=== PATIENT | female | born 1985 | race American Indian/Alaskan Native ===

== ENCOUNTER 2017-07-21 22:40 | Outpatient (CLI) | payer MEDICAID | END 2017-07-22 00:55 | disposition home or self-care (01) | LOC: TRG 22:40 | PROVIDERS: ATTEND Obstetrics & Gynecology | DX: O62.9 Abnormality of forces of labor, unspecified (principal); Z3A.38 38 weeks gestation of pregnancy ==

== ENCOUNTER 2020-05-11 11:09 | Inpatient (IN) | payer MEDICAID ==
[2020-05-11] MEDS ORDERED: ePHEDrine SULFATE 50 MG/1 ML INJ IV PRN (11:55)
[2020-05-11] MEDS ORDERED: LIDOCAINE (2%) 20 MG/1 ML VIAL 20 ML MDV INFILTRATI ONE (11:55)
[2020-05-11] MEDS ORDERED: BUTORPHANOL 2 MG/1 ML INJ IV PRN ×2 (11:55)
[2020-05-11] MEDS ORDERED: TERBUTALINE 1 MG/1 ML INJ SUB-Q PRN (11:55)
[2020-05-11] MEDS ORDERED: TERBUTALINE 1 MG/1 ML INJ IVP PRN (11:55)
[2020-05-11] MEDS ORDERED: fentaNYL 100 MCG/2 ML INJ IV PRN (11:55)
[2020-05-11] MEDS ORDERED: ONDANSETRON 4 MG/2 ML INJ IV PRN ×2 (11:55→19:36)
[2020-05-11] MEDS ORDERED: NalbUPHINE 10 MG/1 ML INJ IV PRN (11:55)
[2020-05-11] MEDS ORDERED: LACTATED RINGERS 1,000 ML IV SCH (12:00)
[2020-05-11] MEDS ORDERED: OXYTOCIN 20 UNIT/1000ML DRIP 20 UNITS/1,000 ML BAG IV SCH (12:00)
[2020-05-11] MEDS ORDERED: OXYTOCIN DRIP 30 UNITS/500 ML BAG IV SCH ×2 (12:00)
[2020-05-11] MEDS ORDERED: ceFAZolin/NS 1 GM/50 ML 1 GM/50 ML BAG IV ONE (13:07)
[2020-05-11 13:15] LABS: Hematocrit 28.1 % (30.3-42.9); Hemoglobin 9.6 gm/dl (10.1-14.3); Mean Corpuscular HGB Conc 34 % (30-34); Mean Corpuscular Volume 100 fl (79-97); Platelet Count 177 K/mm3 (140-440); Red Blood Count 2.82 M/mm3 (3.65-5.03); Red Cell Distribution Width 14.9 % (13.2-15.2)
[2020-05-11] MEDS ORDERED: DOCUSATE SODIUM 100 MG CAP PO PRN (13:29)
[2020-05-11] MEDS ORDERED: ACETAMINOPHEN 325 MG TAB PO PRN ×2 (13:29→19:36)
[2020-05-11] MEDS ORDERED: BETAMET ACET/BETAMET NA PH 6 MG/ML INJ 5 ML MDV IM SCH (14:00)
[2020-05-11] MEDS ORDERED: AMPICILLIN/NS 2 GM/100 ML 2 GM/100 ML BAG IV SCH (14:00)
[2020-05-11] MEDS ORDERED: MAGNESIUM SULFATE 4 GM/100 ML BAG IV ONE (14:27)
[2020-05-11] MEDS ORDERED: MAGNESIUM SULFATE 40GM/1000ML 40 GM/1,000 ML BAG IV SCH (15:00)
[2020-05-11] MEDS ORDERED: ERYTHROMYCIN LACTOBIONATE 250 MG in SODIUM CHLORIDE 0.9% 100 ML IV SCH (15:00)
--- NOTE | 2020-05-11 18:14 | History and Physical Report ---
History of Present Illness Date of examination: 05/11/20 Date of admission: 05/11/20 11:56 Chief complaint: leakage of fluid History of present illness: 34y/o @ 33+3 weeks presents to L&D with premature rupture of membranes. The patient was a late presentation to care @ 20 weeks. Her last visit was @ 29 weeks ega. course complicated by grand multiparity, exposure to multiple STDs, anemia. Her GBS status is unknown. 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, gonorrhea, herpes, trichomonas Social history: single - Obstetrical History Expected Date of Delivery: 06/26/20 Actual Gestation: 33 Week(s) 3 Day(s) : 10 Para: 7 Hx # Term Pregnancies: 7 Number of Pregnancies: 0 Spontaneous Abortions: 2 Induced : 0 Number of Living Children: 7 Medications and Allergies Allergies Allergy/AdvReac Type Severity Reaction Status Date / Time No Known Allergies Allergy Verified 07/22/17 09:34 Home Medications Medication Instructions Recorded Confirmed Last Taken Type Ferrous Fumarate/Docusate(Nf) 1 each PO DAILY #30 tablet.er 07/22/17 Unknown Rx [Ganesh-Sequels 106/50 mg tab] Ibuprofen [Motrin] 600 mg PO Q8H PRN #40 tablet 07/22/17 Unknown Rx Vit-Fe Fumar-FA [ 1 tab PO QDAY 07/22/17 07/22/17 1 Day Ago History Vitamin] ~07/21/17 Active Meds: Active Medications Acetaminophen (Tylenol) 650 mg PO Q4H PRN PRN Reason: Pain MILD(1-3)/Fever >100.5/NICHOLS Amoxicillin (Trimox) 250 mg PO Q8HR EBONY; Protocol Stop: 05/18/20 13:59 Betamethasone Acet/Betameth SodPhos (Celestone Soluspan) 12 mg IM Q24HR EBONY Last Admin: 05/11/20 13:32 Dose: 12 mg Documented by: Butorphanol Tartrate (Stadol) 1 mg IV Q2H PRN PRN Reason: Pain, Moderate(4-6) LABOR PAIN Butorphanol Tartrate (Stadol) 2 mg IV Q2H PRN PRN Reason: Pain , Severe (7-10) Last Admin: 05/11/20 16:51 Dose: 2 mg Documented by: Docusate Sodium (Colace) 100 mg PO Q12H PRN PRN Reason: Constipation Ephedrine Sulfate (Ephedrine Sulfate) 10 mg IV Q2M PRN PRN Reason: Hypotension Erythromycin (Erythromycin Base) 250 mg PO Q8HR EBONY; Protocol Stop: 05/18/20 13:59 Fentanyl (Sublimaze) 100 mcg IV Q2H PRN PRN Reason: Pain,Severe (7-10) LABOR PAIN Oxytocin/Sodium Chloride (Pitocin/Ns 20 Unit/1000ml Drip) 20 units in 1,000 mls @ 125 mls/hr IV DIRECT EBONY Oxytocin/Sodium Chloride (Pitocin/Ns 30 Unit/500ml) 30 units in 500 mls @ 1 mls/hr IV TITR EBONY; Protocol Lactated Ringer's (Lactated Ringers) 1,000 mls @ 125 mls/hr IV DIRECT EBONY Last Admin: 05/11/20 13:00 Dose: 125 mls/hr Documented by: Ampicillin Sodium (Ampicillin/Ns 2 Gm/100 Ml) 2 gm in 100 mls @ 100 mls/hr IV Q6HR EBONY; Protocol Stop: 05/13/20 06:59 Last Admin: 05/11/20 14:20 Dose: 100 mls/hr Documented by: Erythromycin Lactobionate 250 (mg/ Sodium Chloride) 100 mls @ 100 mls/hr IV Q6HR EBONY; Protocol Stop: 05/13/20 12:59 Last Admin: 05/11/20 15:33 Dose: 100 mls/hr Documented by: Magnesium Sulfate (Magnesium Sulfate 4gm/100ml) 4 gm in 100 mls @ 25 mls/hr IV ONCE ONE Stop: 05/11/20 18:26 Last Admin: 05/11/20 14:55 Dose: 25 mls/hr Documented by: Magnesium Sulfate (Magnesium Sulfate 40gm/1000ml) 40 gm in 1,000 mls @ 50 mls/hr IV DIRECT EBONY Last Admin: 05/11/20 15:40 Dose: 2 gm/hr, 50 mls/hr Documented by: Mineral Oil (Mineral Oil) 30 ml PO QHS PRN PRN Reason: Constipation Multivitamins/Iron/Calcium ( Vitamin) 1 each PO QDAY EBONY Nalbuphine HCl (Nalbuphine) 10 mg IV Q2H PRN PRN Reason: Pain, Moderate (4-6) Ondansetron HCl (Zofran) 4 mg IV Q8H PRN PRN Reason: Nausea And Vomiting Terbutaline Sulfate (Brethine) 0.25 mg SUB-Q ONCE PRN PRN Reason: Hyperstimulation/Hypertonicity Stop: 05/11/20 23:00 Terbutaline Sulfate (Brethine) 0.25 mg IVP ONCE PRN PRN Reason: Hyperstimulation/Hypertonicity Stop: 05/11/20 23:59 Review of Systems All systems: negative Genitourinary: leakage of fluid, contractions - Vital Signs Vital signs: Vital Signs Temp Pulse Resp BP Pulse Ox 98.1 F 102 H 18 136/84 98 05/11/20 11:39 05/11/20 11:39 05/11/20 11:39 05/11/20 11:39 05/11/20 11:39 Temp Pulse Resp BP Pulse Ox 98.1 F 98 H 18 154/76 100 05/11/20 13:53 05/11/20 18:06 05/11/20 16:51 05/11/20 17:59 05/11/20 18:06 - Physical Exam Breasts: Positive: deferred Cardiovascular: Regular rate Lungs: Positive: Clear to auscultation Abdomen: Positive: normal appearance - Obstetrical Cervical Dilatation: 3 Results Result Diagrams: 05/11/20 12:40 Abnormal lab results 05/11/20 Range/Units 12:40 RBC 2.82 L (3.65-5.03) M/mm3 Hgb 9.6 L (10.1-14.3) gm/dl Hct 28.1 L (30.3-42.9) % MCV 100 H (79-97) fl MCH 34 H (28-32) pg All other labs normal. Assessment and Plan - Patient Problems (1) labor in second trimester Current Visit: Yes Status: Acute Plan to address problem: admit to L&D to administer antibiotics, steroids, and magnesium (2) Insufficient care Current Visit: Yes Status: Acute (3) Grand multiparity Current Visit: Yes Status: Acute (4) premature rupture of membranes Current Visit: Yes Status: Acute
[2020-05-11] MEDS ORDERED: PROMETHAZINE 25 MG TAB PO PRN (19:36)
[2020-05-11] MEDS ORDERED: PROMETHAZINE 25 MG RECT SUPP PR PRN (19:36)
[2020-05-11] MEDS ORDERED: WITCH HAZEL/ GLYCERIN PAD TP PRN (19:36)
[2020-05-11] MEDS ORDERED: MAGNESIUM HYDROXIDE (MOM) ORAL LIQD UDC PO PRN (19:36)
[2020-05-11] MEDS ORDERED: LANOLIN/ZINC/DIMETHICONE (LANSINOH) 7 GM TP PRN (19:36)
[2020-05-11] MEDS ORDERED: diphenhydrAMINE 25 MG CAP PO PRN (19:36)
--- NOTE | 2020-05-11 19:36 | Procedure Note ---
OB Delivery Note - Delivery Date of Delivery: 05/11/20 Surgeon: GIANNA CHILEL Estimated blood loss: 300cc - Vaginal Delivery presentation: vertex Delivery position: OA Intrapartum events: labor-<37 weeks Delivery monitor: external FHT, external uterine Route of delivery: Delivery placenta: spontaneous Delivery cord: nuchal cord, 3 umbilical vessels Delivery laceration: none Anesthesia: none Delivery comments: The patient had rapid progression from 4 cm to 10 cm with a precipitous delivery of a liveborn female with Apgars of 8 and 9 weight 5 pounds 2 ounces. The delivery was attended by the nursing staff. Pediatrics were in attendance. Cord was clamped and cut x2 and the infant was passed to the warmer. The placenta delivered spontaneously intact with a three-vessel cord. It was noted that a nuchal cord x1 was manually reduced. No lacerations were noted. Estimated blood loss of 300 mL - A at 1 minute: 8 at 5 minutes: 9 Infant Gender: Female (Weight 5 pounds 2 ounces)
--- NOTE | 2020-05-11 19:41 | Ultrasound Report ---
ULTRASOUND OBSTETRIC INDICATION / CLINICAL INFORMATION: UNSURE OF DATES/FOR DATES. Clinical Gestational Age (GA): Unknown TECHNIQUE: Transabdominal. COMPARISON: None available. FINDINGS: There is a single intrauterine . Heart Rate: 143 beats per minute. Position: cephalic. Cervical length 3 cm. The exam was curtailed because the patient was perceived to have entered labor. Anatomic images acqui red demonstrate a four-chamber cardiac structure. IMPRESSION: 1. Single, living intrauterine in cephalic presentation with heart rate 143 bpm 2. No significant sonographic abnormality on a limited evaluation. Signer Name: Kevin Singh MD Signed: 05/11/2020 7:36 PM Workstation Name: [id number]
[2020-05-11] MEDS ORDERED: MINERAL OIL 30 ML ORAL LIQD PO PRN (22:00)
[2020-05-11] MEDS ORDERED: ceFAZolin/NS 1 GM/50 ML 1 GM/50 ML BAG IV SCH (22:00)
[2020-05-12] MEDS: IBUPROFEN 600 MG TAB PO SCH ×4 (06:11→17:34)
--- NOTE | 2020-05-12 07:54 | Progress Note ---
Assessment and Plan A: PPD#1 s/p at term Gestational HTN P: PIH panel ordered Monitor BPs Anticipate discharge tomorrow Subjective - Subjective Date of service: 05/12/20 Principal diagnosis: s/p at term Interval history: Pt without complaints. Denies PIH symptoms. Patient reports: appetite normal, voiding normally, pain well controlled, ambulating normally [place]: doing well Objective - Vital Signs Latest vital signs: Vital Signs Temp Pulse Resp BP BP Pulse Ox 05/12/20 06:11 18 05/12/20 00:33 98.2 F 83 18 134/83 98 05/12/20 00:00 16 05/11/20 21:40 98.7 F 88 18 135/75 97 05/11/20 21:02 91 H 98 05/11/20 20:59 88 152/85 05/11/20 20:57 88 99 05/11/20 20:56 93 H 92 05/11/20 20:52 92 H 98 05/11/20 20:47 92 H 98 05/11/20 20:44 88 148/85 05/11/20 20:42 102 H 98 05/11/20 20:37 101 H 98 05/11/20 20:32 94 H 93 05/11/20 20:29 90 145/80 05/11/20 20:27 97 H 98 05/11/20 20:24 101 H 92 05/11/20 20:22 102 H 96 05/11/20 20:17 99 H 99 05/11/20 20:14 89 128/72 05/11/20 20:12 95 H 98 05/11/20 20:07 103 H 98 05/11/20 20:02 101 H 100 05/11/20 20:00 105 H 94 05/11/20 19:59 98 H 147/95 05/11/20 19:57 97 H 100 05/11/20 19:52 95 H 98 05/11/20 19:50 97.6 F 94 H 18 148/94 99 05/11/20 19:48 90 148/94 05/11/20 19:47 98 H 100 05/11/20 19:44 96 H 166/93 05/11/20 19:42 100 H 99 05/11/20 19:37 110 H 97 05/11/20 19:28 102 H 100 06/22/20 19:25 101 H 149/87 06 19:23 106 H 100 0620 18:56 118 H 90 06 18:51 114 H 99 05/11/20 18:46 105 H 99 06 18:41 106 H 98 05/11/20 18:36 104 H 98 05/11/20 18:31 107 H 99 05/11/20 18:30 104 H 135/70 05/11/20 18:26 113 H 98 06 18:21 108 H 96 05/11/20 18:16 103 H 96 06 18:11 104 H 96 06 18:06 98 H 100 05/11/20 18:01 106 H 100 05/11/20 17:59 98 H 154/76 05/11/20 17:56 102 H 97 05/11/20 17:51 95 H 98 05/11/20 17:46 104 H 100 05/11/20 17:41 102 H 95 05/11/20 17:37 99 H 91 05/11/20 17:36 96 H 98 05/11/20 17:31 108 H 96 05/11/20 17:26 112 H 97 05/11/20 17:21 104 H 97 05/11/20 17:16 112 H 94 05/11/20 17:13 112 H 94 05/11/20 17:11 108 H 96 05/11/20 17:08 111 H 94 05/11/20 17:06 102 H 98 05/11/20 17:01 94 H 97 05/11/20 16:59 91 H 114/58 05/11/20 16:56 100 H 96 05/11/20 16:51 103 H 18 93 05/11/20 16:46 98 H 99 05/11/20 16:41 98 H 98 05/11/20 16:38 81 L 06 16:36 98 H 100 05/11/20 16:31 108 H 99 06 16:29 103 H 136/90 05/11/20 16:26 102 H 99 05/11/20 16:21 97 H 99 05/11/20 16:16 100 H 98 05/11/20 16:11 98 H 99 05/11/20 16:06 102 H 99 06/22/20 16:01 94 H 99 05/11/20 15:59 96 H 136/89 05/11/20 15:56 95 H 98 05/11/20 15:51 95 H 98 05/11/20 15:46 96 H 98 05/11/20 15:41 93 H 97 05/11/20 15:36 90 97 05/11/20 15:31 94 H 97 05/11/20 15:29 114 H 127/95 05/11/20 15:26 94 H 96 05/11/20 15:21 92 H 99 05/11/20 15:16 95 H 99 05/11/20 15:11 101 H 99 05/11/20 15:06 95 H 99 05/11/20 15:01 100 H 99 05/11/20 14:58 91 H 135/88 05/11/20 14:56 102 H 99 05/11/20 14:51 96 H 99 05/11/20 14:46 100 H 100 05/11/20 14:45 89 05/11/20 14:41 92 H 100 05/11/20 14:36 96 H 100 05/11/20 14:31 94 H 100 05/11/20 14:30 93 H 138/87 05/11/20 14:26 91 H 100 05/11/20 14:21 95 H 99 05/11/20 14:16 95 H 100 05/11/20 14:11 102 H 99 05/11/20 14:06 98 H 99 05/11/20 14:01 93 H 100 05/11/20 13:58 100 H 136/92 05/11/20 13:56 104 H 99 05/11/20 13:53 98.1 F 104 H 18 145/90 99 05/11/20 13:51 102 H 99 05/11/20 13:46 89 99 05/11/20 13:41 99 H 99 05/11/20 13:36 105 H 99 05/11/20 13:31 104 H 99 05/11/20 13:26 97 H 99 05/11/20 13:21 99 H 100 05/11/20 13:16 107 H 100 05/11/20 13:11 96 H 100 05/11/20 13:09 90 145/90 05/11/20 13:06 101 H 99 05/11/20 13:01 99 H 99 05/11/20 12:56 92 H 99 05/11/20 12:51 91 H 99 05/11/20 12:46 92 H 98 05/11/20 12:41 95 H 99 05/11/20 12:40 86 145/83 05/11/20 12:36 98 H 99 05/11/20 12:31 102 H 99 05/11/20 12:26 92 H 99 05/11/20 12:21 100 H 99 05/11/20 12:16 101 H 99 05/11/20 12:11 100 H 136/79 99 05/11/20 12:06 105 H 100 05/11/20 12:01 100 H 99 05/11/20 11:56 93 H 99 05/11/20 11:51 105 H 100 05/11/20 11:46 106 H 99 05/11/20 11:41 92 05/11/20 11:40 105 H 136/84 05/11/20 11:39 98.1 F 102 H 18 146/90 136/84 98 Intake and Output 05/11/20 05/12/20 05/12/20 22:59 06:59 14:59 Output Total 390 300 Balance -390 -300 Output: Urine 390 300 Indwelling Catheter 390 Void 300 Other: Total, Output Amount 40 300 # Voids Void 1 - Exam Breasts: Present: deferred Uterus: Present: fundal height at umbilicus Extremities: Present: edema (trace) - Labs Labs: Abnormal lab results 05/11/20 05/11/20 Range/Units 12:40 17:23 RBC 2.82 L (3.65-5.03) M/mm3 Hgb 9.6 L (10.1-14.3) gm/dl Hct 28.1 L (30.3-42.9) % MCV 100 H (79-97) fl MCH 34 H (28-32) pg Magnesium 2.90 H (1.7-2.3) mg/dL
[2020-05-12 08:49] LABS: Hemoglobin 9.6 gm/dl (10.1-14.3); Mean Corpuscular HGB Conc 33 % (30-34); Mean Corpuscular Volume 101 fl (79-97); Platelet Count 173 K/mm3 (140-440); Red Blood Count 2.88 M/mm3 (3.65-5.03)
[2020-05-12 09:16] LABS: Alanine Aminotransferase 20 units/L (7-56); Uric Acid 5.1 mg/dL (3.5-7.6)
[2020-05-12] MEDS ORDERED: PRENATAL VIT27-FE FUMARATE-FOLIC ACID VIT TAB PO SCH (10:00)
[2020-05-12 15:06] LABS: Bacteria,Urine 1+ /HPF (Negative); Bilirubin,Urine NEG (Negative); Blood,Urine LG (Negative); Color,Urine Yellow (Yellow); Mucus,Urine FEW /HPF; Urobilinogen,Urine < 2.0 mg/dL (<2.0)
[2020-05-12] MEDS: HYDROcodone/ACETAMINOPHEN 5-325 MG TAB PO PRN (22:12)
[2020-05-13] MEDS: IBUPROFEN 600 MG TAB PO SCH ×3 (02:30→17:47)
--- NOTE | 2020-05-13 08:15 | Progress Note ---
Assessment and Plan A: PPD2 s/p Gestational hypertension without symptoms of preeclampsia Chronic anemia due to Mild range BP Afebrile P: Ferrous sulfate supplementation Discharge to home today with strict preeclampsia precautions and 1 week BP check Subjective - Subjective Date of service: 05/13/20 Principal diagnosis: s/p at term, gestational HTN Interval history: PPD2 s/p and gestational hypertension Patient reports: appetite normal, voiding normally, pain well controlled, ambulating normally, other (denies NICHOLS, scotomata, RUQ pain) [place]: doing well, nursing well, bottle feeding (both) Objective - Vital Signs Latest vital signs: Vital Signs Temp Pulse Resp BP BP Pulse Ox 05/13/20 05:20 98.0 F 73 18 135/81 99 05/13/20 03:30 18 05/13/20 02:30 18 05/13/20 01:09 98.4 F 84 20 141/89 99 05/12/20 23:12 18 05/12/20 22:12 18 05/12/20 21:30 98.5 F 76 20 134/89 99 05/12/20 15:50 98 F 88 20 126/75 05/12/20 12:20 98.5 F 89 20 149/99 05/12/20 09:05 98.2 F 88 20 159/99 Intake and Output 05/12/20 05/13/20 05/13/20 23:59 07:59 15:59 Intake Total 480 600 Balance 480 600 Intake: Oral 240 Intake, Free Water 480 360 Other: Total, Intake Amount 240 # Voids Void 1 3 - Exam Lungs: Present: Normal air movement Abdomen: Present: soft. Absent: distention Uterus: Present: firm, fundal height below umbilicus. Absent: bogginess Extremities: Present: normal - Labs Labs: Abnormal lab results 05/12/20 05/12/20 05/12/20 Range/Units 07:50 07:50 14:00 WBC 13.4 H (4.5-11.0) K/mm3 RBC 2.88 L (3.65-5.03) M/mm3 Hgb 9.6 L (10.1-14.3) gm/dl Hct 29.0 L (30.3-42.9) % MCV 101 H (79-97) fl MCH 33 H (28-32) pg Creatinine 0.5 L (0.7-1.2) mg/dL Urine WBC (Auto) 117.0 H (0.0-6.0) /HPF
--- NOTE | 2020-05-13 08:18 | Discharge Summary ---
Providers - Providers Date of Admission: 05/11/20 11:56 Date of discharge: 05/13/20 Attending physician: GIANNA CHILEL 05/11/20 17:13 Consult to Physician [CONS] Routine Comment: Consulting Provider: LAMONT MARIA Physician Instructions: Reason For Exam: PREMATURE AT 33 WEEKS 05/13/20 08:00 Consult to Case Management [CONS] Routine Services Needed at Discharge: [facility] Sales Consultant Notified:: n/a Additional Physician Instructions: Left ear referred x2. 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 She was diagnosed with gestational hypertension and met discharge criteria on PPD2. She will follow up in the office in 1 week for a blood pressure check. Condition at discharge: Good Disposition: DC-01 TO HOME OR SELFCARE Plan - Discharge Medications Prescriptions: Ferrous Sulfate [Feosol 325 MG tab] 325 mg PO BID #60 tablet Ibuprofen [Motrin] 800 mg PO Q8HR PRN #30 tablet PRN Reason: Pain, Moderate (4-6) HYDROcodone/APAP 5-325 [[place] 5/325] 1 each PO Q6HR PRN #20 tablet PRN Reason: Pain - Provider Discharge Summary Activity: routine, no sex for 6 weeks, no heavy lifting 4 weeks, no strenuous exercise Diet: routine Instructions: routine Additional instructions: [] Smoking cessation referral if applicable(refer to patient education folder for contact #) [] Refer to [facility]'s [facility] Booklet Call your doctor immediately for: * Fever > 100.5 * Heavy vaginal bleeding ( >1 pad per hour) * Severe persistent headache * Shortness of breath * Reddened, hot, painful area to leg or breast * Drainage or odor from incision. * Keep incision clean and dry at all times and follow doctor's instructions regarding bathing/showering - Follow up plan Follow up: JESÚS BUCKLEY CNM [Advanced Practice Nurse] - 7 Days (Please call [place] [facility] [employer] production to schedule appointment.) Forms: [facility] Discharge Summary
[2020-05-13] MEDS: HYDROcodone/ACETAMINOPHEN 5-325 MG TAB PO PRN (11:46)
[2020-05-13] MEDS ORDERED: AMOXICILLIN 250 MG CAP PO SCH (14:00)
[2020-05-13] MEDS ORDERED: ERYTHROMYCIN BASE 250 MG CAPSULE DR PO SCH (14:00)
[2020-05-13 17:20] VITALS: BP 126/83
== END 2020-05-13 18:40 | disposition home or self-care (01) | DRG 775 ==
LOC: APU 11:09 → TRG 11:09 → LD 11:35 → TRG 11:49 → LD 11:50 → OBSVTOIN 11:56 → OB 21:24
PROVIDERS: ADMIT Obstetrics & Gynecology; ATTEND Obstetrics & Gynecology
PROC: 10E0XZZ Delivery of Products of Conception, External Approach (ICD-10-PCS; principal; 2020-05-11)
DX: O60.14X0 Preterm labor third trimester with preterm delivery third trimester, not applicable or unspecified (principal); O42.913 Preterm premature rupture of membranes, unspecified as to length of time between rupture and onset of labor, third trimester; Z3A.33 33 weeks gestation of pregnancy; Z37.0 Single live birth; O13.4 Gestational [pregnancy-induced] hypertension without significant proteinuria, complicating childbirth; O99.02 Anemia complicating childbirth; D50.9 Iron deficiency anemia, unspecified; O69.81X0 Labor and delivery complicated by cord around neck, without compression, not applicable or unspecified
CPT/HCPCS: 36415; 76805; 81001; 82565; 83615; 83735; 84450; 84460; 84550; 85027; 86592; 86850; 86900; 86901; 87086; 88307; G0378; J0290; J0595; J0690; J0702; J1364; J2590; J3475; J7120